=== PATIENT | male | born 1985 | race American Indian/Alaskan Native ===

== ENCOUNTER 2019-09-10 13:27 | Emergency (ER) | payer SELFPAY ==
[2019-09-10 13:34] VITALS: BP 138/95
--- NOTE | 2019-09-10 13:58 | Emergency Department Report ---
Blank Doc - Documentation Documentation: 33-year-old male that presents with body aches and cough. Chest pain with cou ghing. This initial assessment/diagnostic orders/clinical plan/treatment(s) is/are subject to change based on patient's health status, clinical progression and re- assessment by fellow clinical providers in the ED. Further treatment and workup at subsequent clinical providers discretion. Patient/guardians urged not to elope from the ED as their condition may be serious if not clinically assessed and managed. Initial orders include: 1- Patient sent to [facility] for further evaluation and treatment 2- CXR
--- NOTE | 2019-09-10 14:39 | XRay Report ---
CHEST 2 VIEWS INDICATION / CLINICAL INFORMATION: cough. COMPARISON: None available. FINDINGS: SUPPORT DEVICES: None. HEART / MEDIASTINUM: No significant abnormality. LUNGS / PLEURA: No significant pulmonary or pleural abnormality. No pneumothorax. ADDITIONAL FINDINGS: No significant additional findings. IMPRESSION: 1. No acute findings. Signer Name: Alessandro Dahl MD Signed: 09/10/2019 2:35 PM Workstation Name: [id number]
== END 2019-09-10 18:15 | disposition left against medical advice (07) ==
LOC: ED 13:27
DX: M79.18 Myalgia, other site (principal); Z53.21 Procedure and treatment not carried out due to patient leaving prior to being seen by health care provider
CPT/HCPCS: 71046; 93005; 93010